=== PATIENT | female | born 1985 | race Caucasian/White ===

== ENCOUNTER 2017-08-19 11:03 | Emergency (ER) | payer OTHER, SELFPAY ==
[2017-08-19 12:08] VITALS: BP 146/96; PULSE 85; RESP 20; TEMP 37; O2SAT 100; BMI 27.4
--- NOTE | 2017-08-19 12:54 | HMH.EDUTC ---
[facility] [place] Referrals: Erlin Smiley [Primary Care Provider] - Medical Decision Making Vital Signs: 08/19/17 12:08 Temperature 98.6 F Temperature Source Temporal Artery Scan Pulse Rate [Right Radial] 85 Respiratory Rate 20 Blood Pressure [Right Arm] 146/96 Blood Pressure Mean [Right Arm] 112 Blood Pressure Source [Right Arm] Automatic Cuff Blood Pressure Position [Right Arm] Sitting 02 Sat by Pulse Oximetry 100 Oxygen Delivery Method Room Air [facility] [place] - General Stated complaint: Abd pain Time Seen by Provider: 08/19/17 12:54 Mode of Arrival: Ambulatory Source of Information: Patient Limitations: No Limitations Description of Symptoms (Recalled from Triage Doc. by RN): PT STATES SHE HAD HYSTERECTOMY IN OCTOBER 2016 AND YESTERDAY STARTED HAVING GROIN PAIN. HEENT Symptoms (Recalled from RN notes): No Resp Symptoms (Recalled from RN notes): No Skin Symptoms (Recalled from RN notes): No MS Symptoms (Recalled from RN notes): No Functional Status (Recalled from RN notes): NA - Related Data Home Medications Medication Instructions Recorded Confirmed No Known Home Medications [No 08/19/17 08/19/17 Known Home Medications] Allergies Allergy/AdvReac Type Severity Reaction Status Date / Time No Known Allergies Allergy Verified 08/19/17 11:27 - Worker's Comp Is this a Worker's Comp case?: No [facility] History - *Social History Smoking Status: Current every day smoker Tobacco Type: cigarettes Alcohol Intake: never - Psychiatric History Expresses thoughts of harming self/others: None Suicide Plan Description: No Plan
[2017-08-19 12:59] LABS: Apearance,Urine Clear (Clear); Bilirubin,Urine Negative (Negative); Blood, Urine Negative (Negative); Color,Urine Yellow (Yellow); Glucose,Urine (UA) Negative (Negative); Ketones,Urine Negative (Negative); PH,Urine 7.5 (5.0-8.5); Protein,Urine Negative (Negative); Specific Gravity, Urine 1.015 (1.005-1.030); UTC Leukocyte Esterase,Urine Negative (Negative); Urobilinogen,Urine 0.2 EU/dl (0.2)
[2017-08-19 13:00] LABS: UTC Nitrate,Urine Negative (Negative)
--- NOTE | 2017-08-19 13:04 | ED_ITS ---
[facility] – [place] Disposition Referrals: Erlin Smiley [Primary Care Provider] - Medical Decision Making Vital Signs: 08/19/17 12:08 Temperature 98.6 F Temperature Source Temporal Artery Scan Pulse Rate [Right Radial] 85 Respiratory Rate 20 Blood Pressure [Right Arm] 146/96 Blood Pressure Mean [Right Arm] 112 Blood Pressure Source [Right Arm] Automatic Cuff Blood Pressure Position [Right Arm] Sitting 02 Sat by Pulse Oximetry 100 Oxygen Delivery Method Room Air [facility] [place] HPI - General Stated complaint: Abd pain Time Seen by Provider: 08/19/17 12:54 Mode of Arrival: Ambulatory Source of Information: Patient Limitations: No Limitations Description of Symptoms (Recalled from Triage Doc. by RN): PT STATES SHE HAD HYSTERECTOMY IN OCTOBER 2016 AND YESTERDAY STARTED HAVING GROIN PAIN. HEENT Symptoms (Recalled from RN notes): No Resp Symptoms (Recalled from RN notes): No Skin Symptoms (Recalled from RN notes): No MS Symptoms (Recalled from RN notes): No Functional Status (Recalled from RN notes): NA - Related Data Home Medications Medication Instructions Recorded Confirmed No Known Home Medications [No 08/19/17 08/19/17 Known Home Medications] Allergies Allergy/AdvReac Type Severity Reaction Status Date / Time No Known Allergies Allergy Verified 08/19/17 11:27 - Worker's Comp Is this a Worker's Comp case?: No [facility] History - *Social History Smoking Status: Current every day smoker Tobacco Type: cigarettes Alcohol Intake: never - Psychiatric History Expresses thoughts of harming self/others: None Suicide Plan Description: No Plan
--- NOTE | 2017-08-19 13:09 | PC.NURSE ---
Triage nurse came to me to report a normal u/a with abdominal pain. Spoke to pt. LLQ abdominal pain. mild 2-3 aching intermittent every few weeks since partial hysterectomy one year ago. Spoke to Dr. Lamb and was told part of recovery. However, pain changed yesterday and now stabbing, more severe and has been gradually getting worse to the point of tears this morning. Pain now 7-8/10. A percocet from mother helped yesterday but hasnt taken or tried anything last night or today. Denies any urinary symptoms. LBM this morning. Discussed possible differentials and [facility] guidelines. Agreeable to transfer to ER. Report called to both Ann Ellis [employer]SULTANT and WALKER Sanders MD. Bed 11 available. Pt assisted over by VANESSA Clark RN
[2017-08-19 13:10] VITALS: BP 136/78; PULSE 58; RESP 18; TEMP 37.3; O2SAT 97; BMI 26.5
--- NOTE | 2017-08-19 13:35 | PC.NURSE ---
Pt left ama at this time, notified WALKER MOY
[2017-08-19 13:36] VITALS: BP 136/78; PULSE 58; RESP 18; TEMP 37.3; O2SAT 99
== END 2017-08-19 13:35 | disposition left against medical advice (07) ==
LOC: UTC 11:52 → ER 13:09
PROVIDERS: Emergency Provider Nurse Practitioner Family; Family Provider Internal Medicine Cardiovascular Disease; PCP Specialist
DX: Z53.29 Procedure and treatment not carried out because of patient's decision for other reasons (principal)
CPT/HCPCS: 81003; 99282

== ENCOUNTER → 2023-04-24 23:41 | Outpatient (CLI) | payer OTHER, SELFPAY ==
[2023-04-24 18:57] LABS: Alanine Aminotransferase 32 U/L (12-78); Albumin Level 4.6 g/dl (3.5-5.0); Albumin/Globulin Ratio 1.4 (1.1-1.8); Alkaline Phosphatase 68 U/L (38-126); Anion Gap 13.6 mEq/L (5-15); Aspartate Amino Transferase 32 U/L (14-36); Bilirubin,Total 0.4 mg/dl (0.2-1.3); Blood Urea Nitrogen 6 mg/dl (7-17); Calcium 9.9 mg/dl (8.4-10.2); Carbon Dioxide 25 mmol/L (22.0-30.0); Chloride 104 mmol/L (98-107); Chol/HDL Ratio 4.9 (1-3.5); Cholesterol 228 mg/dl (140-200); Estimated Glomerular Filt Rate 81 ml/min (>60); GFR (African American) 98 ML/MIN (>60); Globulin 3.2 g/dL (1.3-3.2); Glucose 99 mg/dl (74-100); HDL Cholesterol 47 mg/dl (40-60); Potassium 4.6 mmoL/L (3.5-5.1); Sodium 138 mmol/L (136-145); Total Protein,Serum 7.8 g/dl (6.3-8.2); Triglycerides 305 mg/dl (30-150); VLDL Cholesterol 61 mg/dL (0-40)
[2023-04-24 19:07] LABS: Direct LDL Cholesterol 109.18 mg/dL (100-129)
[2023-04-24 19:15] LABS: 25-OH Vitamin D, Total 28.7 ng/mL (30-100); T4 (Thyroxine) 5.8 ug/dl (5.53-11.0)
[2023-04-24 19:18] LABS: Basophils # 0.1 K/mm3 (0-0.2); Basophils % 0.8 % (0.1-2.0); Eosinophils # 0.1 K/mm3 (0.0-0.4); Eosinophils % 1.2 % (0.1-12.0); Hematocrit 52.3 % (37.0-47.0); Hemoglobin 16.6 g/dL (12.2-16.2); Lymphocytes # 2.2 K/mm3 (0.7-4.5); Lymphocytes % 19.3 % (10-50); Mean Corpuscular HGB Conc 31.7 g/dL (31.8-35.4); Mean Corpuscular Hemoglobin 30.3 pg (27.0-31.2); Mean Corpuscular Volume 95.7 fl (81-99); Mean Platelet Volume 10.5 fl (7.4-10.4); Monocytes # 0.7 K/mm3 (0.1-1.0); Neutrophils # 8.2 K/mm3 (1.8-7.8); Neutrophils % 72.8 % (37.0-80.0); Platelet Count 281 K/mm3 (142-424); Red Blood Count 5.46 M/mm3 (4.20-5.40); Red Cell Distribution Width 13.1 % (11.5-17.5); White Blood Count 11.3 K/mm3 (4.8-10.8)
[2023-04-24 19:29] LABS: Thyroid Stimulating Hormone 0.53 uIU/mL (0.465-4.68)
== END ==
LOC: LAB.DROPOF 23:42
PROVIDERS: PCP Emergency Medicine; Visit Provider Emergency Medicine
DX: M54.16 Radiculopathy, lumbar region (principal); E66.9 Obesity, unspecified; Z68.32 Body mass index [BMI] 32.0-32.9, adult; Z72.0 Tobacco use; Z79.899 Other long term (current) drug therapy
CPT/HCPCS: 80053; 80061; 82306; 84436; 84443; 85025

== ENCOUNTER → 2023-04-27 09:47 | Outpatient (CLI) | payer OTHER, SELFPAY ==
--- NOTE | 2023-04-27 09:54 | MR_ITS ---
FINAL REPORT CLINICAL HISTORY: back pain. LOW BACK PAIN WORSE ON LEFT SIDE. INTERMITTENT LEFT LEG PAIN. NO INJURY OR TRAUMA COMPARISON: None FINDINGS: Multiplanar MR imaging of the lumbar spine was performed without contrast. On the sagittal T2-weighted images, disc degeneration is seen at several levels. The vertebral alignment is normal. There is no evidence of fracture. There are several small hemangiomas in the lumbar vertebral bodies. The conus has an unremarkable appearance. T12-L1: There is no significant canal stenosis or neural foraminal narrowing. L1-2: There is no significant canal stenosis or neural foraminal narrowing. L2-3: An annular bulge is present. There is no significant canal stenosis or neural foraminal narrowing. L3-4: An annular bulge is present. There is no significant canal stenosis or neural foraminal narrowing. L4-5: An annular bulge is present. There is a left foraminal disc protrusion which produces mild left L5 nerve root impingement. L5-S1: An annular bulge is present. There is also a posterior midline annular tear and small central disc protrusion. There is no significant canal stenosis or neural foraminal narrowing. IMPRESSION: Multilevel degenerative disc disease and spondylosis as described, most pronounced at the L4-5 and L5-S1 levels.. Reviewed, Interpreted and Dictated by Jose Guadalupe Guan III, MD Transcribed by Shantal Hawthorne Authenticated and [facility]
== END ==
LOC: RAD 09:48
PROVIDERS: PCP Emergency Medicine; Visit Provider Emergency Medicine
DX: M54.9 Dorsalgia, unspecified (principal)
CPT/HCPCS: 72148; 76376

== ENCOUNTER 2023-05-12 17:00 | Outpatient (RCR) | payer OTHER, SELFPAY ==
--- NOTE | 2023-04-13 11:35 | HMH.PTOPEV ---
PT Outpatient Evaluation Rehab PT Outpatient Evaluation Start: 04/13/23 11:23 Freq: Status: Active Protocol: Document 04/13/23 11:23 ELLEN (Rec: 04/13/23 11:34 ELLEN [id number]) E-signed By David Alejandra, PT Outpatient Therapy Subjective History Subjective History Pt reports h/o chronic LBP for 'my whole adult life.' Pt reports exacerbation over the last ~ 2 months with pain localized to midline from lumbar region to tailbone. Pt reports no radicular s/s, however, reports increased pain intenisty w/lifting and bending. Chief Complaint Pain,Spasms,Stiff,Weakness Symptom Type Ache,Sharp,Dull,Stabbing Symptoms Relieved By Rest/Positioning,Heat,OTC Meds ,Prescription Meds Symptoms Aggravated By Bending/Stooping,Physical Activity,Lifting Prior Functional Limitations Lifting,Housework,Standing, Walking,Bending/Stooping Current Functional Limitations Lifting,Housework,Standing, Bending/Stooping Symptom Description Constant but Variable Level of pain today (0-10) 5 Pain scale - at its best (0-10) 5 Pain scale - at its worst (0-10) 8 Lumbopelvic Eval Posture Thoracic Spine Posture Standing Position Neutral Lumbar Spine Posture Standing Position Increased Lordosis Assistive device Assistive Devices None / NA Gait Observation General Gait Pattern Observation Antalgic Gait Palapation tenderness right lumbar spinal tenderness Yes: 3/4 paraspinal tenderness Yes: 2/4 buttock tenderness Yes: 3/4 Lumbar/Sacral Palpation Findings Tenderness,Trigger Point, Muscle Guarding left lumbar spinal tenderness Yes: 3/4 paraspinal tenderness Yes: 3/4 buttock tenderness Yes: 3/4 Lumbar/Sacral Palpation Findings Tenderness,Trigger Point, Muscle Guarding Accessory Movement L-spine Vertebrae Accessory Movements Central [facility] [place] that Elicit Symptoms L2 bilateral L3 bilateral L4 bilateral L5 bilateral S1 bilateral Range of Motion Lumbar Spine Active Flexion Range of 0-35 Motion (degrees) Lumbar Spine Active Extension Range of 0-10 Motion (degrees) Left Lumbar Spine Lateral Flexion Active 0-15 Range of Motion (degrees)
== END 2023-05-12 17:05 | disposition home or self-care (01) ==
LOC: PT 17:00
PROVIDERS: PCP Emergency Medicine; Visit Provider Emergency Medicine
DX: M54.9 Dorsalgia, unspecified (principal); M54.50 Low back pain, unspecified
CPT/HCPCS: 97010; 97014; 97110; 97140; 97163; G0283

== ENCOUNTER → 2023-05-22 13:27 | Outpatient (CLI) | payer OTHER, SELFPAY ==
[2023-05-22 15:51] LABS: Amphetamine/Metha Screen,Urine Negative ng/ml (<1000); Benzodiazepines Screen,Urine Negative ng/ml (<200)
[2023-05-22 15:52] LABS: Barbiturates Screen,Urine Negative ng/ml (<200)
[2023-05-22 15:53] LABS: Cannabinoid Screen,Urine Positive ng/ml (<50)
[2023-05-22 15:54] LABS: Methadone Screen,Urine Negative ng/ml (<300)
[2023-05-22 15:55] LABS: Opiate Screen,Urine Negative ng/ml (<300); Phencyclidine Screen,Urine Negative ng/ml (<25)
[2023-05-22 16:04] LABS: Cocaine Screen,Urine Negative ng/ml (<300)
== END ==
PROVIDERS: PCP Emergency Medicine; Visit Provider Emergency Medicine
DX: M54.16 Radiculopathy, lumbar region (principal)
CPT/HCPCS: 80305

== ENCOUNTER → 2023-06-28 14:57 | Outpatient (POV) | payer OTHER, SELFPAY ==
[2023-06-28 15:23] VITALS: BP 141/99; PULSE 67; RESP 18; O2SAT 99; BMI 28.9
--- NOTE | 2023-06-28 15:29 | EXP.PAIN.OV ---
HPI Data of Consult Patient: new to practice Consult date: 06/28/23 Requesting Physician: Renea Mancia APRN Consult Narrative Reason for consult: Low back pain History of present illness: Ms. Vallejo is a 37 year old female who presents today as a new patient. She is a referral from Dr. Andrade's office. Today she rates her pain at a 4 out of 10. Patient states her pain is all in her low back and denies any radiating symptoms into her lower extremities. Patient states this has been going on for years and progressively worsened over time. Patient does describe this as a aching, stabbing sensation that is worse with increased activity or certain movements such as bending, twisting or lifting. Patient states the pain does interfere with her ability perform activities of daily living such as cooking and cleaning. Patient does state that she has had injections in the past that did provide significant relief. Patient denies any previous back surgery. Patient has had physical therapy however this made her symptoms worse. Patient has also tried Tylenol along with heat and ice and topicals with no additional improvement. She is prescribed [place] 5 mg 3 times a day. She denies any side effects from this medication. She states this medication does help somewhat. Her Miguel Angel has been reviewed and is appropriate. CC: Renea Mancia APRN [facility] Disclaimer: The information contained in this section may have been updated after the patient was seen, as this information can be updated by other users. Surgical History History of hernia surgery Family History (Updated 06/28/23 @ 15:24 by Maribell Wilkins RN) Other Unknown family medical history Social History (Updated 06/28/23 @ 15:24 by Maribell Wilkins RN) Smoking Status: Current every day smoker tobacco type: cigarettes packs per day: 1 alcohol intake: never substance use type: marijuana current occupational status: unemployed Travel in the last 8 weeks: None Review of Systems Review of Systems Review of systems:: pertinent systems reviewed and negative unless documented below Review of systems (narrative): Review of Systems: General: No recent weight changes, no fever, no sleep disturbances Respiratory: No cough, no shortness of air, no recurring pulmonary infections Cardiovascular/peripheral vascular: No chest pain, no palpitations, no edema, no shortness of breath Gastrointestinal: No new onset incontinence, normal bowel movements reported Genitourinary: No new onset incontinence Musculoskeletal: Low back pain Psychiatric: [Normal mood/affect] Neurological: [Denies weakness in extremities], [denies balance issues] Meds Home Medications and Allergies Home Medications Medication Instructions Recorded Confirmed Type diclofenac sodium 1 % topical gel 2 g topical QID #100 grams 04/03/23 06/28/23 Rx ibuprofen 800 mg tablet 800 mg PO BID PRN Pain 04/03/23 06/28/23 History lidocaine 5 % topical patch 1 patch topical DAILY #30 ea 04/03/23 06/28/23 Rx atorvastatin 10 mg tablet 10 mg PO QHS #90 tabs 04/27/23 06/28/23 Rx ergocalciferol (vitamin D2) 1,250 50,000 unit PO QWEEK 90 days #12 04/27/23 06/28/23 Rx mcg (50,000 unit) capsule caps hydrocodone 5 mg-acetaminophen 325 1 tab PO TID #90 tabs 05/22/23 06/28/23 Rx mg tablet nicotine 21 mg/24 hr daily 1 patch transdermal DAILY #28 ea 05/22/23 06/28/23 Rx transdermal patch New Prescriptions to Start Prescriptions: Allergies Allergy/AdvReac Type Severity Reaction Status Date / Time No Known Allergies Allergy Verified 05/22/23 10:58 Objective Vital signs: Pulse Resp BP Pulse Ox O2 Del Method 67 18 141/99 H 99 Room Air 06/28/23 15:23 06/28/23 15:23 06/28/23 15:23 06/28/23 15:23 06/28/23 15:23 Narrative: Physical Exam: General: Alert and oriented x3, no acute distress, pleasant and cooperative Lungs: Respirations even and
== END ==
PROVIDERS: Visit Provider Nurse Practitioner Family
DX: M54.50 Low back pain, unspecified (principal); G89.29 Other chronic pain; M47.816 Spondylosis without myelopathy or radiculopathy, lumbar region; M51.36 Other intervertebral disc degeneration, lumbar region
CPT/HCPCS: 99202; G0463

== ENCOUNTER 2023-07-28 10:53 | Day surgery (SDC) | payer OTHER, SELFPAY ==
[2023-07-28 11:41] VITALS: BP 125/76; PULSE 81; RESP 18; TEMP 36.6; O2SAT 96; BMI 28.3
[2023-07-28 11:58] VITALS: BP 140/80; PULSE 52; O2SAT 97
[2023-07-28 12:00] VITALS: BP 140/80; PULSE 63; O2SAT 97
--- NOTE | 2023-07-28 12:04 | P.PCN_ITS ---
Procedure Date: 07/28/23 Time: 11:45 Anesthesiologist:: Johnathon Rodríguez CRNA Complications:: None Pre-procedure Diagnosis:: Degenerative disc lumbar spine multilevels. Lumbar radiculopathy. Lumbar spondylosis. Multilevel lumbar facet arthropathy. Post-procedure Diagnosis:: Same. Indications for Procedure:: Patient is a very pleasant 37-year-old female comes our clinic today for lumbar L4-5, L5-S1 facet block/medial branch block. Patient describes low back pain as constant, dull, aching. Patient reports having difficulty with flexion, extension, left and right rotation. She rates her pain 7/10. Procedure Details:: Informed consent was obtained and the risk and benefits of the procedure was explained to the patient. Patient was taken to the procedure room where noninvasive monitors were placed, including noninvasive blood pressure cuff as well as pulse oximeter. The area over the lumbar spine was cleansed using chlorhexidine as a cleansing solution. I anesthetized the skin and subcutaneous tissues with 1% Lidocaine. I placed 22-gauge spinal needles into the facet joint/ medial branches of L4-L5, and L5-S1] bilaterally. Needle placement was confirmed with fluoroscopy. After confirmation of needle placement, each site was injected with 1 mL of 1% lidocaine and 0.25 % Marcaine and 10 mg of Depo- Medrol. A total of 80 mg of depo medrol was used for bilateral medial branch blocks of L4-L5, and L5-S1] bilaterally. Patient tolerated the procedure without difficulty. There were no complications. Plan and Disposition:: Patient was discharged without incident.
[2023-07-28 12:05] VITALS: BP 122/91; PULSE 54; RESP 16; O2SAT 96
== END 2023-07-28 12:05 | disposition home or self-care (01) ==
PROVIDERS: PCP Nurse Practitioner Family; Visit Provider Nurse Anesthetist, Certified Registered
DX: M47.896 Other spondylosis, lumbar region (principal); M51.16 Intervertebral disc disorders with radiculopathy, lumbar region
CPT/HCPCS: 64493; 64494; J1040

== ENCOUNTER 2024-03-27 15:53 | Emergency (ER) | payer OTHER, SELFPAY ==
--- NOTE | 2024-03-27 15:57 | ED_ITS ---
Discharge Plan Disposition Patient Disposition: Home, Self-Care Condition: Good Prescriptions Prescriptions: New cephalexin 500 mg capsule 500 mg PO QID 7 Days Qty: 28 0RF Referrals Follow up/Referrals: Severiano Jimenez APRN [Primary Care Provider] - See instructions Activity Restrictions/Add. Instructions Additional Instructions/Restrictions: Keep the wound clean and dry. Keep a dressing on it if you are going to be getting it dirty. Watch the wound for signs of infection, such as redness, swelling, drainage, fever. etc. Take tylenol or ibuprofen for pain. Follow up with your regular doctor. Return in 7 days to have the sutures removed. GO TO THE ER FOR ANY WORSENING SYMPTOMS OR CONCERNS. 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 This hit her leg and caused her to get a laceration on the lateral aspect of her left leg. Her tetanus immunization is not up to date. Related Data Previous Rx's ?Medication ?Instructions ?Recorded cephalexin 500 mg capsule 500 mg PO QID 7 days #28 caps 03/27/24 Allergies Allergy/AdvReac Type Severity Reaction Status Date / Time No Known Allergies Allergy Verified 07/28/23 11:41 [facility] Disclaimer: The information contained in this section may have been updated after the patient was seen, as this information can be updated by other users. Medical History (Updated 03/27/24 @ 18:01 by Cliff Topete APRN) No significant past medical history Surgical History History of hernia surgery Family History Other Unknown family medical history Social History Smoking Status: Current every day smoker tobacco type: cigarettes packs per day: 1 alcohol intake: never substance use type: marijuana current occupational status: unemployed Travel in the last 8 weeks: None ROS Obtained: Yes All systems reviewed & no additional complaints except as documented Constitutional Constitutional: Denies chills and Denies fever(s) Eyes Eyes: Denies eye discharge ENT Ears, Nose, Mouth, and Throat: Denies dizziness, Denies otalgia and Denies sore throat Cardiovascular Cardiovascular: Denies chest pain Respiratory Respiratory: Denies shortness of breath, Denies chest congestion, Denies cough, Denies stridor and Denies wheezing Gastrointestinal Gastrointestingal: Denies nausea or vomiting Musculoskeletal Musculoskeletal: Reports system reviewed and no additional complaints, except as documented and Denies arthralgias Integumentary/Breasts Skin/Breast: Reports as per HPI Neurologic Neurologic: Denies dizziness and Denies paresthesias Allergic/Immunologic Allergic/Immunologic: Denies wheezing Physical Exam General General appearance: alert and in no apparent distress Head Head exam: atraumatic, normocephalic and normal inspection Eye Eye exam: Present normal appearance, PERRL and EOMI ENT ENT exam: Present normal exam, normal oropharynx, mucous membranes moist, TM's normal bilaterally and normal external ear exam Neck Neck exam: Present normal inspection, full ROM and trachea midline; Absent meningismus or lymphadenopathy Chest Chest inspection: Present normal inspection and symmetric chest wall rise; Absent tenderness Respiratory Respiratory exam: Present normal lung sounds bilaterally; Absent respiratory distress Cardiovascular Cardiovascular exam: Present regular rate and normal rhythm; Absent JVD Abdominal Exam Abdominal exam: Present soft and normal bowel sounds; Absent distention, tenderness or guarding Extremities Exam Extremities exam: Present normal inspection, full ROM and normal capillary refill; Absent calf tenderness Back Exam Back exam: Present normal inspection; Absent tenderness Neurological Exam Neurological exam: Present alert and oriented X3 Psychiatric Psychiatric exam: Present normal affect and normal mood Skin Skin exam: Present other (there is a laceration on her left leg that measures 3 cm length, no deep tissue or tendon damage, no foreign body noted. ) Lymphatic Lymphatic Findings: no adenopathy Medical Decision Making Medical Records Medical records reviewed: No I reviewed the patient's medical records. Miguel Angel Inquiry Pt receiving controlled substance: No Procedures Risk/Benefits of Procedure(s) Were Explained: Yes Laceration Laceration 1: Site: lower extremity Side (If applicable): left Size (cm): 3 Description: linear Depth: simple, single layer Local Anesthetic: lidocaine 1% Amount of anesthesia used (mL): 2 Pre-repair: wound explored, irrigated extensively and deep structures intact Skin layer closed with: nylon Size (cm): 5-0 Number of sutures: 7 Technique: simple, interrupted (she tolerated this well, good closure was obtained, the edges were approximated well. )
[2024-03-27 16:10] VITALS: BP 133/93; PULSE 83; RESP 20; TEMP 36.6; O2SAT 98; BMI 34.5
[2024-03-27] MEDS: LIDOCAINE 1% PF 2ML AMPULE 2 ML SQ (17:18)
[2024-03-27] MEDS: TET/DIPHTH/PERT-ADULT 0.5ML SYRINGE 0.5 ML IM (17:20)
[2024-03-27 17:55] VITALS: BP 133/93; PULSE 83; RESP 20; TEMP 36.6; O2SAT 98
== END 2024-03-27 18:05 | disposition home or self-care (01) ==
PROVIDERS: Emergency Provider Nurse Practitioner Family; PCP Nurse Practitioner Family
DX: S81.812A Laceration without foreign body, left lower leg, initial encounter (principal); Z23 Encounter for immunization; W26.8XXA Contact with other sharp object(s), not elsewhere classified, initial encounter
CPT/HCPCS: 12002; 90471; 90715; 99204; 99213; G0463

== ENCOUNTER 2024-11-25 12:29 | Emergency (ER) | payer OTHER, SELFPAY ==
--- NOTE | 2024-11-25 12:35 | ED_ITS ---
<Statement entered by Renea Sam DO - 11/25/24 15:25> I was consulted by the ROSIE, and we discussed the complexity of the problems being addressed. I approved the treatment and management plan for this patient's care in the emergency department, thus performing a substantive portion of the medical decision making. Renea Sam DO Discharge Plan Disposition Patient Disposition: Home, Self-Care Condition: Good Prescriptions Prescriptions: No Action cephalexin 500 mg capsule 500 mg PO QID 7 Days Qty: 28 0RF Referrals Follow up/Referrals: Barrera Smiley [Primary Care Provider] - See instructions Jeanie Keenan DPM [Staff Physician] - See instructions Activity Restrictions/Add. Instructions Additional Instructions/Restrictions: As we discussed I have given you the name of our local foot and ankle specialist. However please contact your PCP for a list of recommendations and/or referral closer where you go. If you have any continued new or worsening signs or symptoms follow-up with your PCP return to the ER. I recommend rest ice compression elevation and weightbearing as tolerated. Clinical Impressions Clinical Impression: Right ankle sprain Qualifiers: Encounter type: sequela Involved ligament of ankle: unspecified ligament Qualified Code(s): S93.401S - Sprain of unspecified ligament of right ankle, sequela Print Language Print Language: Luxembourgish Discharge ED Provider: Renea Sam General Adult HPI General Chief complaint: PAIN Stated complaint: AO-11/24 2200-misstep- pain and swelling R ankle Time Seen by Provider: 11/25/24 12:35 History of Present Illness HPI narrative: Patient presents for evaluation of a right ankle injury. Patient took a misstep inside her house and landed awkwardly with her right foot. She heard a pop and felt pain in the lateral aspect of her right ankle. She took a family member's Percocet however it has not helped and patient has difficulty bearing weight. She denies numbness or tingling loss of motor or sensory. She did not suffer any other injury. She did not fall. Related Data Previous Rx's ?Medication ?Instructions ?Recorded cephalexin 500 mg capsule 500 mg PO QID 7 days #28 caps 03/27/24 Allergies Allergy/AdvReac Type Severity Reaction Status Date / Time No Known Allergies Allergy Verified 07/28/23 11:41 [facility] Disclaimer: The information contained in this section may have been updated after the patient was seen, as this information can be updated by other users. Medical History (Updated 11/25/24 @ 13:58 by JALEN Lara) No significant past medical history Surgical History History of hernia surgery Family History Other Unknown family medical history Social History Smoking Status: Current every day smoker tobacco type: cigarettes packs per day: 1 alcohol intake: never substance use type: marijuana current occupational status: unemployed Travel in the last 8 weeks: None Have you lived/traveled outside [place] in past 30 days?: No Contact w/someone who lives/traveled outside [place] past 30 days?: No Exposure to someone with infectious disease in past 14 days?: No Do you have a fever (greater than 100.4 F or 38 C)?: No Have you tested positive for COVID-19: No Exposed to someone with COVID-19 in past 14 days?: No Do you have a sore throat?: No Do you have a cough?: No Do you have any weakness?: No Do you have any diarrhea?: No Are you experiencing any unusual bleeding?: No Do you have any muscle aches/pain?: No Do you have any abdominal pain?: No Are you experiencing loss of taste or smell?: No Other Medical History Have you received the Flu Vaccine for this season: No Have you received the Pneumonia Vaccine: No ROS Obtained: Yes Systems reviewed as appropriate & no additional complaints except as documented Physical Exam General General appearance: alert and in no apparent distress Respiratory Respiratory exam: Present normal lung sounds bilaterally Cardiovascular Cardiovascular exam: Present regular rate Neurological Exam Neurological exam: Present alert and oriented X3 Medical Decision Making Medical Records Screening: Per USPSTF and CDC recommendations, given the prevalence of disease in our region, it is our hospital?s policy to screen for HIV and viral Hepatitis for all patients aged 18 and over and those with ongoing risk factors. Miguel Angel Inquiry Pt receiving controlled substance: No Vital Signs: 11/25/24 12:39 Temperature 98.3 F Temperature Source Oral Pulse Rate [Right] 81 Respiratory Rate 18 Blood Pressure [Right Arm] 118/91 H Blood Pressure Mean [Right Arm] 100 02 Sat by Pulse Oximetry 97 Oxygen Delivery Method Room Air Orders (Tests/Meds): ED MEDICATIONS Discontinued Medications Generic Name Dose Route Start Last Admin Trade Name Issa PRN Reason Stop Dose Admin Acetaminophen 1,000 mg 11/25/24 12:38 11/25/24 13:01 Acetaminophen 500mg Tab PO 11/25/24 12:39 1,000 mg ONCE ONE Administration Ibuprofen 800 mg 11/25/24 12:38 11/25/24 13:01 Ibuprofen 400 Mg Tablet PO 11/25/24 12:39 800 mg ONCE ONE Administration ORDERS Category Date Time Status Ankle XR -Right minimum 3 Views [XR ankle RT min 3V] Exams 11/25/24 12:37 Completed Stat XR foot RT min 3V Stat Exams 11/25/24 12:37 Completed Medical Decision Narrative: In summary patient is a 39-year-old female who presents to the emergency [facility] for evaluation of right ankle injury. Patient is hemodynamically stable upon arrival, afebrile. Physical exam is remarkable for tenderness to palpation ecchymosis and swelling anterior to the lateral malleolus but on the anterior lateral aspect of her right foot patient does have full range of motion neurovascular intact distally.. Differential diagnosis includes sprain versus fracture. Initial workup will be conducted with plain film x-rays. Initial interventions include Tylenol ibuprofen. Initial workup reviewed by me and my informal to rotation of her imaging shows no acute fracture.. Upon repeat evaluation patient is able to bear weight but it is painful.. Given this I have recommended rest ice compression elevation, referral to foot and ankle specialist and have given her 1 locally and she is going to contact her PCP to find one closer to where she lives, I recommended weightbearing as tolerated and if she has continued new or worsening signs or symptoms follow-up with her PCP or return to the ER as needed. Patient verbalized understanding agreement. Critical Care Critical Care Time Critical Care Time: No
--- NOTE | 2024-11-25 12:37 | XR_ITS ---
FINAL REPORT CLINICAL HISTORY: Twisted ankle lateral swelling FINDINGS: RIGHT FOOT 3 views of the right foot were obtained. There is no acute fracture or dislocation. Visualized joint spaces are normally aligned. Soft tissues are unremarkable. IMPRESSION: No acute bony abnormality. Reviewed, Interpreted and Dictated by Alton Bearden MD Transcribed by Felicitas Mirza Authenticated and [facility]
--- NOTE | 2024-11-25 12:37 | XR_ITS ---
FINAL REPORT CLINICAL HISTORY: Twisted ankle lateral swelling FINDINGS: RIGHT ANKLE 3 views of the right ankle were obtained. There is no acute fracture or dislocation. The mortise is intact. Visualized joint spaces are normally aligned. Soft tissues are unremarkable. IMPRESSION: No acute bony abnormality. Reviewed, Interpreted and Dictated by Alton Bearden MD Transcribed by Felicitas Mirza Authenticated and [facility]
[2024-11-25 12:39] VITALS: BP 118/91; PULSE 81; RESP 18; TEMP 36.8; O2SAT 97; BMI 28.1
--- NOTE | 2024-11-25 12:50 | PC.NURSE ---
XR AT BEDSIDE
[2024-11-25] MEDS: ACETAMINOPHEN 500MG TAB 1000 MG PO (13:01)
[2024-11-25] MEDS: IBUPROFEN 400 MG TABLET 800 MG PO (13:01)
[2024-11-25 14:09] VITALS: BP 111/76; PULSE 55; RESP 19; TEMP 36.7; O2SAT 98
== END 2024-11-25 14:11 | disposition home or self-care (01) ==
PROVIDERS: Emergency Provider Emergency Medicine; PCP Internal Medicine Cardiovascular Disease
DX: S93.401A Sprain of unspecified ligament of right ankle, initial encounter (principal); X50.1XXA Overexertion from prolonged static or awkward postures, initial encounter
CPT/HCPCS: 99283; 73610; 73630